=== PATIENT | female | born 1990 | race Two or more races ===

== ENCOUNTER 2019-08-09 19:45 | Inpatient (IN) | payer OTHER ==
[~2019-08-09] VITALS: Ht 170.2 cm; Wt 154.7 kg
[2019-08-09 20:50] LABS: BILIRUBIN,URINE SMALL (NEG); CLARITY,URINE CLOUDY; COLOR,URINE AMBER; NITRITE,URINE NEGATIVE (NEG); PH,URINE 5.5; PROTEIN,URINE NEGATIVE (NEG-TRACE)
[2019-08-09 20:56] LABS: SQUAMOUS EPITHELIAL CELL,UR MANY /LPF
[2019-08-09 20:57] LABS: BACTERIA,URINE FEW /HPF (0-FEW); RBC,URINE 0 /HPF (0-2)
[2019-08-09 21:04] LABS: AMPHETAMINE/METHAMPHETAMINE NEG (NEG); BARBITURATES NEG (NEG); BENZODIAZEPINES NEG (NEG); CANNABINOIDS POS (NEG); COCAINE NEG (NEG); METHADONE NEG (NEG); OPIATES NEG (NEG); PHENCYCLIDINE NEG (NEG)
[2019-08-09] MEDS ORDERED: ONDANSETRON PF 4 MG/2 ML VIAL. IV PRN (21:15)
[2019-08-09] MEDS ORDERED: ACETAMINOPHEN 500 MG TABLET PO PRN (21:15)
[2019-08-09] MEDS ORDERED: BETAMET ACET&NA PHOS 30 MG/5 ML VIAL. IM SCH (21:30)
[2019-08-09 21:49] LABS: CREATININE,RANDOM URINE 303.1 mg/dL (Not Establ.)
[2019-08-09] MEDS: IV RINGERS,LACTATED 1000ML 1,000 ML IV SCH (21:53)
[2019-08-09 21:55] LABS: BASO # 0.1 x10^3/uL (0.0-0.2); BASO % 1 % (0-3); EOS # 0.1 x10^3/uL (0.0-0.7); EOS % 1 % (0-3); HEMATOCRIT 36.3 % (36.0-47.0); HEMOGLOBIN 12.4 g/dL (12.0-15.5); LYMPH # 1.6 x10^3/uL (1.0-4.8); LYMPH % 16 % (24-48); MEAN CORPUSCULAR HEMOGLOBIN 28 pg (25-35); MEAN CORPUSCULAR HGB CONC 34 g/dL (31-37); MEAN CORPUSCULAR VOLUME 83 fL (79-100); MONO # 0.7 x10^3/uL (0.0-1.1); MONO % 7 % (0-9); NEUT # 7.4 x10^3/uL (1.8-7.7); NEUT % 75 % (31-73); PLATELET COUNT 118 x10^3/uL (140-400); RED BLOOD COUNT 4.39 x10^6/uL (3.50-5.40); WHITE BLOOD COUNT 9.8 x10^3/uL (4.0-11.0)
[2019-08-09 22:05] LABS: CALCIUM 8.7 mg/dL (8.5-10.1); CREATININE 0.5 mg/dL (0.6-1.0); POTASSIUM 3.8 mmol/L (3.5-5.1)
[2019-08-09 22:08] LABS: ALBUMIN 2.4 g/dL (3.4-5.0); ALBUMIN/GLOBULIN RATIO 0.6 (1.0-1.7); TOTAL BILIRUBIN 0.3 mg/dL (0.2-1.0); TOTAL PROTEIN 6.4 g/dL (6.4-8.2); URIC ACID 4.1 mg/dL (2.6-6.0)
--- NOTE | 2019-08-10 05:03 | RAD ---
Obstetrical ultrasound HISTORY: female with severe pain and bleeding. FINDINGS: There is a single living intrauterine fetus in cephalic position with heart rate of 111 bpm. Fundal and anterior placenta. There is a large heterogeneous echogenic nonshadowing masslike focus of the anterior lower placenta obscuring the anterior placenta, this mass demonstrates no significant internal blood flow by color Doppler sonography, in light of the patient's clinical history this is most concerning for a large retroplacental hematoma due to abruption obscuring the anterior lower aspect of the placenta. The size of this mass was not measured on the images. This mass abuts the fetus. Amniotic fluid index 11.4 cm. Cervix and maternal ovaries not visualized. IMPRESSION: Single living intrauterine fetus in cephalic position. There is a large echogenic avascular mass of the lower anterior placenta concerning for a large retroplacental hematoma due to abruption. Critical results were called to PETRONA Gutierrez in labor and delivery at 5:00 AM August 10, 2019. Read back of report performed. Electronically signed by: Talat Mcdaniel MD (08/10/2019 5:00 AM) [facility]
[2019-08-10] MEDS ORDERED: OXYTOCIN 10 UNIT/ML VIAL. ONE ×2 (05:04→05:32)
[2019-08-10] MEDS ORDERED: ePHEDrine PF IN SALINE 50 MG/10 ML SYRINGE. IV ONE (05:04)
[2019-08-10] MEDS ORDERED: PHENYLEPHRINE in 0.9% NACL PF 1 MG/10 ML SYRINGE. IV ONE (05:04)
[2019-08-10] MEDS ORDERED: SUCCINYLCHOLINE 200 MG/10 ML VIAL. ONE (05:05)
[2019-08-10] MEDS ORDERED: PROPOFOL 20 ML IV ONE (05:08)
[2019-08-10] MEDS ORDERED: LIDOCAINE 2% PF 5 ML VIAL. ONE (05:09)
[2019-08-10] MEDS ORDERED: fentaNYL PF VIAL 100 MCG/2 ML VIAL ONE ×3 (05:12→06:24)
[2019-08-10] MEDS ORDERED: ceFAZolin SODIUM 3 GM in IV DEXTROSE 5% 100ML 100 ML IV ONE (05:15)
[2019-08-10] MEDS ORDERED: CITRIC ACID/SODIUM CITRATE 30 ML SOLUTION. PO ONE (05:15)
[2019-08-10] MEDS ORDERED: SEVOFLURANE 31 TO 60 MINUTES. IH ONE (05:48)
--- NOTE | 2019-08-10 06:37 | PDOC1 ---
OB - History Hx of Present Care: Good Care Obstetrical Complications: Pre-eclampsia Past Family/Social History * Past Medical, Surgical, Family and Obstetric Histories reviewed from chart. Rubella: Immune RPR/VDRL: Negative HBsAG: Negative OB - Chief Complaint & HPI Date of Admission: Date of Admission: Aug 09, 2019 at 19:45 Chief Complaint/History : 3 Para: 2 EDC: Sep 18, 2019 Reason for admission: observation Admission Nurse Assessment Rev: Yes OB - Admission Exam Physical Exam HEENT: Normal, Nasal Mucosa Normal, Oropharynx Normal, Moist Membranes, Fontanelles Normal Heart: Regular Rate Lungs: Clear, Equal Extremities: Normal Pulses, No tenderness or swelling Reflexes: Normal Cervical Dilatation: None Station: Ballotable Membranes: Intact Heart Rate: Normal Contractions on Admission: >10 Minutes Apart Intensity: Mild Assessment/Plan Assessment/Plan 34 week IUP PIH labs monitor steroids GIO MITCHELL MD Aug 10, 2019 06:37
--- NOTE | 2019-08-10 06:39 | PDOC ---
BRIEF OPERATIVE NOTE Date: Aug 10, 2019 Pre-Op Diagnosis 34 week IUP abruption Post-Op Diagnosis Same Procedure Performed primary C/S Surgeon Leoncio Anesthesia Type: General Blood Loss 100cc Specimens Obtained placenta Findings female abruption Complications None GIO MITCHELL MD Aug 10, 2019 06:39
[2019-08-10] MEDS ORDERED: ZOLPIDEM 5 MG TABLET. PO PRN (06:45)
[2019-08-10] MEDS ORDERED: MAG HYDROX/ALUMINUM HYD/SIMETH 30 ML ORAL.SUSP PO PRN (06:45)
[2019-08-10] MEDS ORDERED: diphenhydrAMINE ORAL ELIXIR 12.5 MG/5 ML ML PO PRN (06:45)
[2019-08-10] MEDS ORDERED: ONDANSETRON PF 4 MG/2 ML VIAL. IV PRN (06:45)
[2019-08-10] MEDS ORDERED: 0.9 % SODIUM CHLORIDE 10 ML DISP.SYRIN. IV PRN (06:45)
[2019-08-10] MEDS ORDERED: MMR per PROTOCOL. MC PRN (06:45)
[2019-08-10] MEDS ORDERED: OXYTOCIN 30 UNIT/500 ML PREMIX 500 ML IV PRN (06:45)
[2019-08-10] MEDS ORDERED: IV NORMAL SALINE 1000ML BAG 1,000 ML IV SCH (07:18)
[2019-08-10] MEDS ORDERED: NALOXONE 0.4 MG/ML VIAL. IV PRN (07:30)
[2019-08-10] MEDS ORDERED: HYDROmorphone 12mg/30ml PCA 30 ML IV PRN (07:30)
[2019-08-10 07:32] LABS: HEMATOCRIT 32.8 % (36.0-47.0); HEMOGLOBIN 10.8 g/dL (12.0-15.5); RED BLOOD COUNT 3.89 x10^6/uL (3.50-5.40); RED CELL DISTRIBUTION WIDTH 14.1 % (11.5-14.5); WHITE BLOOD COUNT 17.8 x10^3/uL (4.0-11.0)
[2019-08-10] MEDS: KETOROLAC 30 MG/ML VIAL. IV PRN ×3 (07:42→21:31)
[2019-08-10] MEDS: IV RINGERS,LACTATED 1000ML 1,000 ML IV SCH (07:43)
[2019-08-10] MEDS: FERROUS SULFATE 325 MG TABLET. PO SCH (08:00)
[2019-08-10 09:45] VITALS: BP 152/95
[2019-08-10 10:45] VITALS: BP 132/86
[2019-08-10 13:46] VITALS: BP 150/83
[2019-08-10] MEDS ORDERED: ceFAZolin SODIUM 1 GM in IV DEXTROSE 5% 50 ML IV SCH (14:00)
[2019-08-10] MEDS: IBUPROFEN 400 MG TABLET. PO SCH ×2 (14:00→22:00)
[2019-08-10] MEDS: ceFAZolin SODIUM IV Push 1 GM VIAL. IVP SCH ×2 (15:09→22:41)
[2019-08-10] MEDS: oxyCODONE/APAP 5/325 1 TAB TABLET PO PRN ×2 (15:32→21:32)
[2019-08-10 19:00] LABS: BASO % 0 % (0-3); EOS % 0 % (0-3); HEMATOCRIT 24.4 % (36.0-47.0); HEMOGLOBIN 8.2 g/dL (12.0-15.5); LYMPH % 9 % (24-48); MEAN CORPUSCULAR HEMOGLOBIN 28 pg (25-35); MEAN CORPUSCULAR HGB CONC 34 g/dL (31-37); MEAN CORPUSCULAR VOLUME 83 fL (79-100); MONO # 0.9 x10^3/uL (0.0-1.1); MONO % 8 % (0-9); NEUT # 9.8 x10^3/uL (1.8-7.7); NEUT % 84 % (31-73); PLATELET COUNT 102 x10^3/uL (140-400); RED BLOOD COUNT 2.93 x10^6/uL (3.50-5.40); RED CELL DISTRIBUTION WIDTH 13.9 % (11.5-14.5); WHITE BLOOD COUNT 11.7 x10^3/uL (4.0-11.0)
[2019-08-10] MEDS: SIMETHICONE 80 MG TAB.CHEW PO PRN (21:31)
[2019-08-10] MEDS: DOCUSATE SODIUM 100 MG CAPSULE. PO PRN (21:32)
[2019-08-10 21:35] VITALS: BP 138/80
--- NOTE | 2019-08-10 22:00 | NUR ---
Ibuprofen held, pt. getting Toradol.
[2019-08-11] MEDS: oxyCODONE/APAP 5/325 1 TAB TABLET PO PRN ×5 (01:59→22:32)
[2019-08-11 02:00] VITALS: BP 132/69
[2019-08-11 06:35] VITALS: BP 118/65
[2019-08-11] MEDS: KETOROLAC 30 MG/ML VIAL. IV PRN (06:39)
[2019-08-11] MEDS: ceFAZolin SODIUM IV Push 1 GM VIAL. IVP SCH (07:49)
[2019-08-11 09:44] LABS: BASO % 0 % (0-3); EOS % 0 % (0-3); HEMATOCRIT 23.2 % (36.0-47.0); HEMOGLOBIN 7.8 g/dL (12.0-15.5); LYMPH # 1.3 x10^3/uL (1.0-4.8); LYMPH % 15 % (24-48); MEAN CORPUSCULAR HEMOGLOBIN 28 pg (25-35); MEAN CORPUSCULAR HGB CONC 34 g/dL (31-37); MEAN CORPUSCULAR VOLUME 84 fL (79-100); MONO # 0.7 x10^3/uL (0.0-1.1); MONO % 8 % (0-9); NEUT # 6.5 x10^3/uL (1.8-7.7); NEUT % 76 % (31-73); PLATELET COUNT 99 x10^3/uL (140-400); RED BLOOD COUNT 2.77 x10^6/uL (3.50-5.40); WHITE BLOOD COUNT 8.6 x10^3/uL (4.0-11.0)
[2019-08-11 10:35] VITALS: BP 138/91
[2019-08-11] MEDS: DOCUSATE SODIUM 100 MG CAPSULE. PO PRN ×2 (11:42→22:32)
[2019-08-11] MEDS: FERROUS SULFATE 325 MG TABLET. PO SCH ×2 (11:43→16:40)
[2019-08-11] MEDS: MAGNESIUM HYDROXIDE 2,400 MG/30 ML ORAL.SUSP. PO PRN (11:43)
[2019-08-11] MEDS: PRENATAL MULTIVITAMIN TABLET. PO SCH (11:43)
[2019-08-11] MEDS: IBUPROFEN 400 MG TABLET. PO SCH ×2 (11:44→22:31)
--- NOTE | 2019-08-11 15:07 | PATHOLOGY ---
[facility] Accession Number: [id number] . 01 Material submitted: . placenta - PLACENTA AND CORD . 01 Clinical history: . , please see delivery summary. . 02 Diagnosis: Placenta, section: -Third trimester placenta, 521 grams. - Attached trivascular umbilical cord without significant inflammation. - Acute chorioamnionitis, focal, mild. - Mild meconium staining of membranes. - Placental parenchyma with no histopathologic diagnosis. (FLORINDA:jo ann; 08/11/2019) [facility] 08/11/2019 1305 Local . 02 Electronically signed: . Stewart Alas MD, Pathologist NPI- [id number] . 01 Gross description: . Received in formalin labeled "Reinaldo Lim, placenta" is a talamantes placenta with attached membranes and umbilical cord. The placental disc measures 18.0 x 17.6 x 4.0 cm. The membranes are transparent and thin with the site of membrane rupture 11.2 cm from the placental disc. The membranes have marginal insertion. Below the amnion on the surface is a 9.0 x 7.5 x 1.8 cm area of red-brown clotted blood. The umbilical cord measures 15.6 cm in length, 1.5 cm in diameter, contains three vessels and inserts eccentrically, 5.2 cm from the closest placental margin. There are no true knots in the umbilical cord. The trimmed placental weight is 521 grams. The surface is blue-wylie with minimal subchorionic fibrin. Amnion nodosum is not present. Cysts are not present. The maternal surface has intact cotyledons and no basal hemorrhage. Sectioning through the placental disc reveals no infarcts or calcifications. Also present within the container is a 17.5 x 15.0 x 4.9 cm aggregate of red brown clotted blood material. Sections are submitted as follows: . A1 proximal and distal umbilical cord A2 membranes, rolled A3 automobile sales representative peripheral placenta A4 automobile sales representative central placenta [place] [facility] 08/11/2019 1302 Local . 02 Pathologist provided ICD-10: O41.1230, O77.0, Z37.0 . 02 CPT . 754394 Specimen Comment: A courtesy copy of this report has been sent to Specimen Comment: [phone]. Specimen Comment: Report sent to Performed at: 01 [facility] [address], [place] [id number] MD Michele Isabel MD Phone: [phone] Performed at: 02 [facility] [address], [place] [id number] MD Anthony Duncan MD Phone: [phone]
[2019-08-11 17:55] VITALS: BP 144/77
[2019-08-11 22:30] VITALS: BP 148/86
[2019-08-12 02:50] VITALS: BP 122/64
[2019-08-12] MEDS: oxyCODONE/APAP 5/325 1 TAB TABLET PO PRN ×4 (02:52→20:09)
[2019-08-12 05:34] LABS: BASO % 0 % (0-3); EOS # 0.1 x10^3/uL (0.0-0.7); EOS % 2 % (0-3); HEMATOCRIT 21.3 % (36.0-47.0); HEMOGLOBIN 7.2 g/dL (12.0-15.5); LYMPH # 1.4 x10^3/uL (1.0-4.8); LYMPH % 22 % (24-48); MEAN CORPUSCULAR HEMOGLOBIN 28 pg (25-35); MEAN CORPUSCULAR HGB CONC 34 g/dL (31-37); MEAN CORPUSCULAR VOLUME 84 fL (79-100); MONO # 0.6 x10^3/uL (0.0-1.1); MONO % 9 % (0-9); NEUT # 4.3 x10^3/uL (1.8-7.7); NEUT % 67 % (31-73); PLATELET COUNT 99 x10^3/uL (140-400); RED BLOOD COUNT 2.53 x10^6/uL (3.50-5.40); RED CELL DISTRIBUTION WIDTH 14.3 % (11.5-14.5); WHITE BLOOD COUNT 6.4 x10^3/uL (4.0-11.0)
[2019-08-12 07:30] VITALS: BP 145/90
[2019-08-12] MEDS: DOCUSATE SODIUM 100 MG CAPSULE. PO PRN ×2 (09:26→17:21)
[2019-08-12] MEDS: SIMETHICONE 80 MG TAB.CHEW PO PRN (09:26)
[2019-08-12] MEDS: IBUPROFEN 400 MG TABLET. PO SCH ×3 (09:27→23:27)
[2019-08-12] MEDS: FERROUS SULFATE 325 MG TABLET. PO SCH ×2 (09:27→17:21)
[2019-08-12] MEDS: PRENATAL MULTIVITAMIN TABLET. PO SCH (09:27)
--- NOTE | 2019-08-12 10:07 | PDOC ---
Provider Note Provider Note Late Entry 08/11/19 Pt in with infant in nursery VSS Hgb 7.8 FU in AM GIO MITCHELL MD Aug 12, 2019 10:07
--- NOTE | 2019-08-12 10:22 | PDOC ---
Provider Note Provider Note Stable Hgb 7.2 Dressing CDI FU in AM GIO MITCHELL MD Aug 12, 2019 10:22
[2019-08-12] MEDS: MAGNESIUM HYDROXIDE 2,400 MG/30 ML ORAL.SUSP. PO PRN (10:56)
[2019-08-12] MEDS ORDERED: DIPHTH,PERTUSS(ACELL),TET TOX 0.5 ML DISP.SYRIN. VAX IM ONE (12:00)
[2019-08-12 14:40] VITALS: BP 127/64
[2019-08-12 20:00] VITALS: BP 139/86
[2019-08-13] MEDS: oxyCODONE/APAP 5/325 1 TAB TABLET PO PRN ×3 (00:06→20:06)
[2019-08-13 00:25] VITALS: BP 134/58
[2019-08-13 04:00] VITALS: BP 120/60
[2019-08-13] MEDS: IBUPROFEN 400 MG TABLET. PO SCH ×2 (07:57→17:05)
[2019-08-13] MEDS: DOCUSATE SODIUM 100 MG CAPSULE. PO PRN ×2 (07:57→17:05)
[2019-08-13] MEDS: FERROUS SULFATE 325 MG TABLET. PO SCH ×2 (07:57→17:05)
[2019-08-13] MEDS: PRENATAL MULTIVITAMIN TABLET. PO SCH (07:57)
--- NOTE | 2019-08-13 08:51 | PDOC ---
Provider Note Provider Note Doing well Dressing CDI FU in AM GIO MITCHELL MD Aug 13, 2019 08:51
--- NOTE | 2019-08-13 11:28 | OP ---
DATE OF SURGERY: 08/10/2019 PREOPERATIVE DIAGNOSES: 1. A 34- and 3-week intrauterine . 2. -induced hypertension. 3. Abruption. POSTOPERATIVE DIAGNOSES: 1. A 34- and 3-week intrauterine . 2. -induced hypertension. 3. Abruption. PROCEDURE: Emergent primary low transverse . SURGEON: Kingsley Fang MD CURRICULUM CONSULTANT: None. ANESTHESIA: General. ESTIMATED BLOOD LOSS: 1000 mL. FLUIDS: Crystalloid. FINDINGS: Female , Apgars 1, 5 and 8, normal uterus, tubes and ovaries. SPECIMENS: Placenta. COMPLICATIONS: None. CONDITION: Stable. DESCRIPTION OF PROCEDURE: Risks, benefits, indications, alternatives discussed in detail with the patient. The patient was brought to OR theater, placed in supine position with left lateral uterine displacement. An emergent induction of anesthesia and was performed. A low transverse Pfannenstiel incision was made sharply, carried down through subcutaneous tissue with scalpel. Rectus fascia was nicked and extended laterally in each direction with the fascia. The upper edge of rectus fascia was manually from the overlying rectus muscle with gloved hand. Rectus muscle was split in midline with gloved hand. Gloved hand was used to enter the peritoneum with a stretch on the rectus muscle, room was made for delivery of the . Bladder blade was placed. A low transverse hysterotomy incision was made sharply with a scalpel with care not to injure any underlying structures. The uterus membranes were ruptured with gloved hand. A significant amount of clot came out of the incision. Gloved hand was used to lower uterine segment to try to elevate the head. Secondary to the size of the incision. A forceps blade was used to replace my hand to gain more room with fundal pressure from the reading assistant. was delivered on anterior abdominal wall. was floppy. The cord was doubly clamped, transected cord between two clamps. was handed to nursing care in attendance. Considerable clot approximately 1000 mL was extubated from the uterine cavity. The placenta was delivered spontaneously and handed off the operative field. Any adherent membranes were wiped clean with a wet laparotomy sponge. Uterus was extricated on anterior abdominal wall, wrapped in wet laparotomy sponge. Low transverse hysterotomy incision was imbricated with 0 Monocryl in a running locking manner. Areas of bleeding were controlled with [id number] 3-0 Vicryl. Slvaa was placed on the denuded portions of the lower uterine segment. Uterus was placed back within its pelvic cavity. Good hemostasis was assured. Urine was clear. Rectus muscle was inspected. It was hemostatic. Rectus fascia was reapproximated with 0 PDS self-retaining suture. Subcutaneous tissue was irrigated copiously with warm normal saline. Skin was reapproximated with Insorb esteban. Sponge, needle and instrument counts were correct x 2 per nursing staff. The patient went to postop anesthesia recovery in stable condition. KINGSLEY FANG MD DR: TIMOTEO/bull JOB#: [id number] / [id number]
[2019-08-13 13:00] VITALS: BP 134/82
[2019-08-13 20:00] VITALS: BP 147/76
[2019-08-14] MEDS: oxyCODONE/APAP 5/325 1 TAB TABLET PO PRN ×4 (00:15→17:27)
[2019-08-14] MEDS: IBUPROFEN 400 MG TABLET. PO SCH ×3 (00:16→17:27)
[2019-08-14 03:15] VITALS: BP 159/94
[2019-08-14 07:50] VITALS: BP 149/86
[2019-08-14] MEDS: DOCUSATE SODIUM 100 MG CAPSULE. PO PRN ×2 (08:01→17:24)
[2019-08-14] MEDS: FERROUS SULFATE 325 MG TABLET. PO SCH ×2 (08:02→17:24)
[2019-08-14] MEDS: PRENATAL MULTIVITAMIN TABLET. PO SCH (08:06)
--- NOTE | 2019-08-14 12:07 | PDOC3 ---
OB DISCHARGE SUMMARY DATE OF DISCHARGE: 08/14/19 REASON FOR ADMISSION: labor PROCEDURES: Ultrasound INTRAPARTUM PROCEDURES: : Low Cerv Trans PROCEDURES: None OPERATIONS: None DISCHARGE DIAGNOSIS: Others (Abruptino, primary C/S) DISCHARGE INFORMATION: Activity, Diet HOSPITAL COURSE unrmarkable CONDITION AT DISCHARGE Stable GIO MITCHELL MD Aug 14, 2019 12:07
[2019-08-14] MEDS ORDERED: OXYC1TAB15 PO (12:11)
[2019-08-14] MEDS ORDERED: FERR325T14 PO (12:11)
[2019-08-14] MEDS ORDERED: NAPR-514 PO (12:11)
--- NOTE | 2019-08-14 12:26 | NUR ---
SS following up with referral regarding "mother urine positive for Marijuana, baby urine negative, meconium positive for Marijuana." SS met with RN, Lin, and discussed with mother RN. SS received notification that mother is appropriate with infant and is bonding well. SS received notification that mother has all needed supplies for and there are no other concerns other than positive Marijuana. [facility] hotline report made for positive Marijuana, intake# [id number]. Infant RN notified.
[2019-08-14 17:38] VITALS: BP 147/86
--- NOTE | 2019-08-14 17:45 | NUR ---
Pt discharged to boarder status. Discharge, F/U instructions and 3 RX's given to pt. Pt moved to room 382 to be closer to the nursery. Pt took all belongings with her. Pt denied any complaints or questions at this time.
== END 2019-08-14 17:45 | disposition home or self-care (01) | DRG 786 ==
LOC: OBSVTOIN 19:45 → 3 SO LND 19:45 → 3 NORTH 08-10 09:16
PROVIDERS: ADMIT Specialist; ATTEND Specialist
PROC: 10D00Z1 Extraction of Products of Conception, Low, Open Approach (ICD-10-PCS; principal; 2019-08-13)
DX: O60.14X0 Preterm labor third trimester with preterm delivery third trimester, not applicable or unspecified (principal); O45.93 Premature separation of placenta, unspecified, third trimester; O13.4 Gestational [pregnancy-induced] hypertension without significant proteinuria, complicating childbirth; Z3A.34 34 weeks gestation of pregnancy; Z37.0 Single live birth
CPT/HCPCS: 36415; 76815; 80053; 80307; 81001; 82570; 84156; 84550; 85025; 85027; 86592; 86850; 86900; 86901; 87340; 88307; 90471; 90715; G0378; J0171; J0330; J0690; J0702; J1170; J1885; J2001; J2370; J2590; J2704; J3010; J7120